=== PATIENT | male | born 1965 | race Caucasian/White ===

== ENCOUNTER 2018-09-01 17:21 | Emergency (ER) | payer SELFPAY ==
[~2018-09-01] VITALS: Ht 185.4 cm; Wt 122.5 kg
--- NOTE | 2018-09-01 17:44 | ED Abdominal Pain ---
General Chief Complaint: Abdominal/GI Problems Stated Complaint: RIB PAIN Nursing Triage Note: PT PRESENTS TO ED WITH COMPLAINTS OF R UPPER ABDOMINAL PAIN THAT RADIATES TO HIS R SIDE AND BACK. REPORTS PAIN STARTED X 2 DAYS AGO. PT REPORTS DECREASED APPETITE BUT DENIES N/V. Sepsis Screen: No Definite Risk Source of Information: Patient Exam Limitations: No Limitations History of Present Illness Date Seen by Provider: Sep 01, 2018 Time Seen by Provider: 17:42 Initial Comments To ER per private vehicle with reports of right lateral posterior chest pain that radiates through to the front right upper abdomen. This is been present constant and varying in intensity for the past 2-3 days. Has a history kidney stones but this feels different. No nausea or vomiting. Food does not affect the pain. No cough or shortness of breath. No fevers or chills. Timing/Duration: 1-2 Days Severity/Quality: Moderate Location: Other Radiation: No Radiation Activities at Onset: None Allergies and Home Medications Allergies Coded Allergies: morphine (Verified Adverse Reaction, Unknown, 09/01/18) NAUSEA Patient Home Medication List Home Medication List Reviewed: Yes Review of Systems Review of Systems Constitutional: see HPI; No chills, No diaphoresis, No fever EENTM: No Symptoms Reported Respiratory: See HPI; Denies Cough, Denies Shortness of Air, Denies SOA With Exertion, Denies SOA at Rest Gastrointestinal: See HPI, Abdominal Pain; Denies Constipated, Denies Diarrhea , Denies Nausea Genitourinary: No Symptoms Reported Musculoskeletal: no symptoms reported Skin: no symptoms reported Psychiatric/Neurological: No Symptoms Reported Endocrine: No Symptoms Reported Past Ndwerwg-Tnbyhb-Eganlg Hx Patient Social History Alcohol Use: Denies Use Recreational Drug Use: No Smoking Status: Former Smoker Former Smoker, Quit: Oct 26, 2017 Recent Foreign Travel: No Contact w/Someone Who Travel: No Recent Infectious Disease Expo: No Recent Hopitalizations: No Seasonal Allergies Seasonal Allergies: No Past Medical History Surgeries: Yes (BILAT INDEX FINGER, L HAND, R KNEE) Joint Replacement Respiratory: No Cardiac: Yes Hypertension Neurological: No Genitourinary: Yes Kidney Stones Gastrointestinal: No Musculoskeletal: No Endocrine: No HEENT: No Cancer: No Psychosocial: Yes Anxiety Integumentary: No Blood Disorders: No Adverse Reaction/Blood Tranf: No Physical Exam Vital Signs Vital Signs - First Documented 09/01/18 17:27 Temp 98.4 Pulse 84 Resp 16 B/P (MAP) 120/98 (105) Pulse Ox 96 Capillary Refill : Less Than 3 Seconds Height/Weight/BMI Height: 6'1.00" Weight: 270lbs. oz. 122.311744hb; BMI Method:Stated General Appearance: WD/WN, no apparent distress HEENT: PERRL/EOMI, normal ENT inspection Respiratory: no respiratory distress, no accessory muscle use Gastrointestinal: normal bowel sounds, non tender, soft Extremities: normal range of motion, non-tender Neurologic/Psychiatric: alert, normal mood/affect, oriented x 3 Skin: normal color Progress/Results/Core Measures Results/Orders Lab Results Laboratory Tests Test 09/01/18 17:43 Range/Units White Blood Count 10.1 4.3-11.0 10^3/uL Red Blood Count 5.04 4.35-5.85 10^6/uL Hemoglobin 15.4 13.3-17.7 G/DL Hematocrit 44 40-54 % Mean Corpuscular Volume 86 80-99 FL Mean Corpuscular Hemoglobin 31 25-34 PG Mean Corpuscular Hemoglobin Concent 35 32-36 G/DL Red Cell Distribution Width 13.4 10.0-14.5 % Platelet Count 239 130-400 10^3/uL Mean Platelet Volume 10.4 7.4-10.4 FL Neutrophils (%) (Auto) 74 42-75 % Lymphocytes (%) (Auto) 18 12-44 % Monocytes (%) (Auto) 7 0-12 % Eosinophils (%) (Auto) 1 0-10 % Basophils (%) (Auto) 0 0-10 % Neutrophils # (Auto) 7.5 1.8-7.8 X 10^3 Lymphocytes # (Auto) 1.9 1.0-4.0 X 10^3 Monocytes # (Auto) 0.7 0.0-1.0 X 10^3 Eosinophils # (Auto) 0.1 0.0-0.3 10^3/uL Basophils # (Auto) 0.0 0.0-0.1 10^3/uL Sodium Level 137 135-145 MMOL/L Potassium Level 3.9 3.6-5.0 MMOL/L Chloride Level 102 98-107 MMOL/L Carbon Dioxide Level 23 21-32 MMOL/L Anion Gap 12 5-14 MMOL/L Blood Urea Nitrogen 18 7-18 MG/DL Creatinine 1.10 0.60-1.30 MG/DL Estimat Glomerular Filtration Rate > 60 BUN/Creatinine Ratio 16 Glucose Level 94 70-105 MG/DL Calcium Level 9.4 8.5-10.1 MG/DL Corrected Calcium 8.5-10.1 MG/DL Total Bilirubin 0.6 0.1-1.0 MG/DL Aspartate Amino Transf (AST/SGOT) 19 5-34 U/L Alanine Aminotransferase (ALT/SGPT) 22 0-55 U/L Alkaline Phosphatase 53 40-136 U/L Total Protein 8.0 6.4-8.2 GM/DL Albumin 4.7 H 3.2-4.5 GM/DL Lipase 28 8-78 U/L My Orders Orders - PABLO BARROW APRN Cbc With Automated Diff (09/01/18 17:36) Comprehensive Metabolic Panel (09/01/18 17:36) Ua Culture If Indicated (09/01/18 17:36) Lipase (09/01/18 17:36) Ct Abdomen/Pelvis W (09/01/18 17:36) Iv Heplock-Insert (Order) (09/01/18 17:36) Ketorolac Injection (Toradol Injection) (09/01/18 17:45) Fentanyl Injection (Sublimaze Injection (09/01/18 17:45) Iohexol Injection (Omnipaque 350 Mg/Ml 1 (09/01/18 18:00) Contrast Received (Contrast Received) (09/01/18 18:00) Ns (Ivpb) (Sodium Chloride 0.9% Ivpb Bag (09/01/18 18:00) Medications Given in ED Current Medications Medications Dose Ordered Sig/Jatinder Route Start Time Stop Time Status Last Admin Dose Admin Fentanyl Citrate 50 mcg ONCE PRN IVP 09/01/18 17:45 09/01/18 17:51 50 MCG Iohexol 150 ml ONCE ONCE IV 09/01/18 18:00 09/01/18 18:01 DC 09/01/18 18:35 150 ML Ketorolac Tromethamine 15 mg ONCE ONCE IVP 09/01/18 17:45 09/01/18 17:46 DC 09/01/18 17:50 15 MG Sodium Chloride 100 ml ONCE ONCE IV 09/01/18 18:00 09/01/18 18:01 DC 09/01/18 18:35 80 ML Vital Signs/I&O 09/01/18 17:27 Temp 98.4 Pulse 84 Resp 16 B/P (MAP) 120/98 (105) Pulse Ox 96 Blood Pressure Mean: 105 Diagnostic Imaging Diagonstic Imaging: CT Comments NAME: DONNA MEDLEY [facility] REC#: [id number] PT STATUS: REG ER : 1965 PHYSICIAN: PABLO BARROW INSPECTOR [employer] RECONDITIONING ADMIT DATE: 09/01/18/ER Draft Date of Exam:09/01/18 CT ABDOMEN/PELVIS W PROCEDURE: CT abdomen and pelvis with contrast. TECHNIQUE: Multiple contiguous axial images were obtained through the abdomen and pelvis after administration of intravenous contrast. INDICATION: Right upper posterior back pain radiating to the front for 3 days. No prior studies are available for comparison. The lung bases are clear. Liver contains a tiny 6 mm low-density in the right lobe near the dome. This is too small to accurately characterize but most likely represents small cysts. The gallbladder is unremarkable. No biliary duct dilatation is seen. The pancreas and spleen are unremarkable. No adrenal mass is identified. The kidneys are unremarkable. No hydronephrosis is identified. The aorta is normal caliber. No aneurysm or dissection is seen. The small and large bowel loops are normal caliber. The appendix is visualized and unremarkable. No obstruction or ascites is detected. No inflammatory process is seen. No inguinal or iliac lymphadenopathy is detected. No central retroperitoneal or mesenteric lymphadenopathy is seen. IMPRESSION: Essentially unremarkable CT of the abdomen and pelvis. No acute abnormality is detected. Dictated on workstation # [id number] Dict: 09/01/18 1850 Trans: 09/01/18 1857 MIRZA [id number] Interpreted by: HARPREET CHAN MD Electronically signed by: Departure Impression Primary Impression: RUQ abdominal pain Disposition: HOME, SELF-CARE Condition: Stable Departure-Patient Inst. Decision time for Depature: 19:02 Patient Instructions: Acute Abdomen (Belly Pain), Adult (DC) Add. Discharge Instructions: 1. Pain medication as directed 2. Follow-up with your doctor for further evaluation of your pain. This may include gallbladder ultrasound All discharge instructions reviewed with patient and/or family. Voiced understanding. Images Torso/Trunk 1 - Tenderness 1 - Other-See Progress Note PABLO BARROW APRN Sep 01, 2018 17:44
[2018-09-01] MEDS ORDERED: fentaNYL INJECTION 100 MCG/2 ML AMP IVP PRN (17:45)
[2018-09-01] MEDS ORDERED: KETOROLAC 30 MG/ML VIAL IVP ONE (17:45)
[2018-09-01 17:53] LABS: BASOPHILS % (AUTO) 0 % (0-10); EOSINOPHILS # (AUTO) 0.1 10^3/uL (0.0-0.3); EOSINOPHILS % (AUTO) 1 % (0-10); HEMATOCRIT 44 % (40-54); HEMOGLOBIN 15.4 G/DL (13.3-17.7); LYMPHOCYTES # (AUTO) 1.9 X 10^3 (1.0-4.0); LYMPHOCYTES % (AUTO) 18 % (12-44); MEAN CORPUSCULAR HEMOGLOBIN 31 PG (25-34); MEAN CORPUSCULAR HGB CONC 35 G/DL (32-36); MEAN CORPUSCULAR VOLUME 86 FL (80-99); MEAN PLATELET VOLUME 10.4 FL (7.4-10.4); MONOCYTES # (AUTO) 0.7 X 10^3 (0.0-1.0); MONOCYTES % (AUTO) 7 % (0-12); NEUTROPHILS # (AUTO) 7.5 X 10^3 (1.8-7.8); NEUTROPHILS % (AUTO) 74 % (42-75); PLATELET COUNT 239 10^3/uL (130-400); RED BLOOD COUNT 5.04 10^6/uL (4.35-5.85); RED CELL DISTRIBUTION WIDTH 13.4 % (10.0-14.5); WHITE BLOOD COUNT 10.1 10^3/uL (4.3-11.0)
[2018-09-01] MEDS ORDERED: NS 100 ML (IVPB) BAG IV ONE (18:00)
[2018-09-01] MEDS ORDERED: RECEIVED CONTRAST (Hold Metformin) IV SCH (18:00)
[2018-09-01] MEDS ORDERED: IOHEXOL 350 MG/ML 150 ML (OMNIPAQUE 350) VIAL IV ONE (18:00)
[2018-09-01 18:18] LABS: ALANINE AMINOTRANSFERASE 22 U/L (0-55); ALBUMIN 4.7 GM/DL (3.2-4.5); ALKALINE PHOSPHATASE 53 U/L (40-136); BILIRUBIN,TOTAL 0.6 MG/DL (0.1-1.0); BUN/CREATININE RATIO 16; CALCIUM 9.4 MG/DL (8.5-10.1); CARBON DIOXIDE 23 MMOL/L (21-32); CHLORIDE 102 MMOL/L (98-107); GFR ESTIMATED > 60; GLUCOSE 94 MG/DL (70-105); LIPASE 28 U/L (8-78); POTASSIUM 3.9 MMOL/L (3.6-5.0); SODIUM 137 MMOL/L (135-145)
--- NOTE | 2018-09-01 18:57 | Diagnostic Imaging Report ---
PROCEDURE: CT abdomen and pelvis with contrast. TECHNIQUE: Multiple contiguous axial images were obtained through the abdomen and pelvis after administration of intravenous contrast. INDICATION: Right upper posterior back pain radiating to the front for 3 days. No prior studies are available for comparison. The lung bases are clear. Liver contains a tiny 6 mm low-density in the right lobe near the dome. This is too small to accurately characterize but most likely represents small cysts. The gallbladder is unremarkable. No biliary duct dilatation is seen. The pancreas and spleen are unremarkable. No adrenal mass is identified. The kidneys are unremarkable. No hydronephrosis is identified. The aorta is normal caliber. No aneurysm or dissection is seen. The small and large bowel loops are normal caliber. The appendix is visualized and unremarkable. No obstruction or ascites is detected. No inflammatory process is seen. No inguinal or iliac lymphadenopathy is detected. No central retroperitoneal or mesenteric lymphadenopathy is seen. IMPRESSION: Essentially unremarkable CT of the abdomen and pelvis. No acute abnormality is detected. Dictated by: Dictated on workstation # [id number]
[2018-09-01] MEDS ORDERED: RX-HYDROCODONE/APAP 5/325 MG #4 TAB PK PO PRN (19:15)
[2018-09-01 19:28] VITALS: BP 120/98
== END 2018-09-01 19:32 | disposition home or self-care (01) ==
LOC: ER 17:22
DX: R10.11 Right upper quadrant pain (principal); I10 Essential (primary) hypertension; F41.9 Anxiety disorder, unspecified; Z88.5 Allergy status to narcotic agent; Z87.442 Personal history of urinary calculi; Z96.651 Presence of right artificial knee joint
CPT/HCPCS: 36415; 74177; 80053; 83690; 85025